=== PATIENT | female | born 1935 | race Caucasian/White ===

== ENCOUNTER 2016-10-16 02:30 | Emergency (ER) | payer OTHER ==
[2016-10-16] MEDS ORDERED: SODIUM CHLORIDE 0.9% 1,000 ML ONE (03:55)
== END 2016-10-16 05:32 | disposition home or self-care (01) ==
LOC: ER 02:30
CPT/HCPCS: 36415; 71010; 80053; 81003; 84439; 84443; 85025; 87804; 87880; 93005; 96360